=== PATIENT | male | born 1970 | race Caucasian/White ===

== ENCOUNTER 2017-05-02 19:23 | Emergency (ER) | payer MEDICAID ==
[~2017-05-02] VITALS: Ht 170.2 cm; Wt 63.0 kg
[2017-05-02 23:43] VITALS: BP 119/82
== END 2017-05-02 23:44 | disposition home or self-care (01) ==
LOC: ER 19:39
DX: F12.90 Cannabis use, unspecified, uncomplicated (principal); F19.10 Other psychoactive substance abuse, uncomplicated; F17.290 Nicotine dependence, other tobacco product, uncomplicated; J45.909 Unspecified asthma, uncomplicated
CPT/HCPCS: 82962; 99283; Z7610